=== PATIENT | female | born 1965 | race Hispanic/Latino ===

== ENCOUNTER 2017-10-25 15:37 | Emergency (ER) | payer BC ==
[2017-10-25 15:52] VITALS: BMI 30.2
--- NOTE | 2017-10-25 16:44 | ED PDOC ---
HPI: Back Time Seen by Provider: 10/25/17 15:58 Chief Complaint (Nursing): Back Pain Chief Complaint (Provider): Back Pain History Per: Patient History/Exam Limitations: no limitations Onset/Duration Of Symptoms: Other (x4 weeks) Current Symptoms Are (Timing): Still Present Additional Complaint(s): 52 y/o female presents to the ED complaining of left lower back pain (non radiating) x 4 weeks. Patient is also complaining of pain on urination x 3 days. Reports that this morning she had neck pain and numbness in right arm when she woke up. Pt has been taking motrin but states it is not helping and she cannot sleep. Denies abdominal pain, nausea, vomiting, diarrhea or any further medical complaints. Past Medical History Reviewed: Historical Data, Nursing Documentation, Vital Signs Vital Signs: Last Vital Signs Temp 98.9 F 10/25/17 15:49 Pulse 84 10/25/17 15:49 Resp 16 10/25/17 15:49 BP 150/114 H 10/25/17 15:49 Pulse Ox 98 10/25/17 15:49 - Medical History PMH: No Chronic Diseases - Surgical History Other surgeries: Gastric Bypass - Family History Family History: States: Unknown Family Hx - Social History Current smoker - smoking cessation education provided: No Alcohol: None Drugs: Denies - Home Medications Home Medications: Ambulatory Orders Medication Instructions Recorded oxyCODONE/Acetaminophen [Percocet 1 ea PO Q6H PRN #8 tab 10/25/17 5/325 mg Tab] - Allergies Allergies/Adverse Reactions: Allergies Allergy/AdvReac Type Severity Reaction Status Date / Time No Known Allergies Allergy Verified 07/29/16 11:41 Review of Systems ROS Statement: Except As Marked, All Systems Reviewed And Found Negative (As per HPI, otherwise negative) Gastrointestinal: Negative for: Nausea, Vomiting, Abdominal Pain, Diarrhea Genitourinary Female: Positive for: Dysuria Musculoskeletal: Positive for: Neck Pain, Arm Pain (Right arm numbness), Back Pain (left lower back pain) Physical Exam - Reviewed Nursing Documentation Reviewed: Yes Vital Signs Reviewed: Yes - Physical Exam Appears: Positive for: Non-toxic, No Acute Distress Head Exam: Positive for: ATRAUMATIC, NORMAL INSPECTION, NORMOCEPHALIC Skin: Positive for: Normal Color, Warm, Dry Eye Exam: Positive for: Normal appearance ENT: Positive for: Normal ENT Inspection Neck: Positive for: Normal Cardiovascular/Chest: Positive for: Regular Rate, Rhythm. Negative for: Murmur Respiratory: Positive for: Normal Breath Sounds. Negative for: Accessory Muscle Use, Respiratory Distress Gastrointestinal/Abdominal: Positive for: Normal Exam Back: Positive for: Other (Tenderness to left lower back) Extremity: Positive for: Normal ROM. Negative for: Deformity Neurologic/Psych: Positive for: Alert, Oriented (x3) - ECG O2 Sat by Pulse Oximetry: 98 (RA) Pulse Ox Interpretation: Normal Medical Decision Making Medical Decision Making: Time: 16:22 Plan: EKG Urine dipstick Urine C-spine x-ray lumbar spine x-ray Reevaluation Time: 17:29 C-spine X-ray FINDINGS: BONES: Alignment maintained. No fracture. Dens Intact. DISC SPACES: Mild degenerative changes C5-6 and C6-7. Disc space narrowing, small non marginal osteophyte formation. SOFT TISSUES: Normal. No prevertebral soft tissue swelling. OTHER FINDINGS: None. IMPRESSION: No acute findings related to/accounting for the clinical presentation. Time: 17:29 Lumbar spine x-ray FINDINGS: BONES: Normal alignment. No listhesis. No fracture. Diffuse osteopenia identified. DISC SPACES: Unremarkable. OTHER FINDINGS: None. IMPRESSION: No significant or acute findings to account for/ related to the clinical presentation. Urine without signs of infection. Scribe Attestation: Documented by Radha Diggs acting as a scribe for MITUL Jenkins. Scribadali Attestation: All medical record entries made by the Scribe were at my direction and personally dictated by me. I have reviewed the chart and agree that the record accurately reflects my personal performance of the history, physical exam, medical decision making, and the department course for this patient. I have also personally directed, reviewed, and agree with the discharge instructions and disposition. Disposition - Clinical Impression Clinical Impression: Back pain - Patient ED Disposition Is Patient to be Admitted: No - Disposition Referrals: Provider TBD, [Primary Care Provider] - Disposition: Routine/Home Disposition Time: 18:06 Condition: GOOD Prescriptions: oxyCODONE/Acetaminophen [Percocet 5/325 mg Tab] 1 ea PO Q6H PRN #8 tab PRN Reason: Pain, Severe (8-10) Instructions: Low Back Pain in Adults Forms: [facility] ([place])
--- NOTE | 2017-10-25 17:30 | RAD ---
PROCEDURE: Cervical Spine Radiographs. HISTORY: Neck pain, right arm pain and numbness. No history of trauma provided COMPARISON: None. FINDINGS: BONES: Alignment maintained. No fracture. Dens Intact. DISC SPACES: Mild degenerative changes C5-6 and C6-7. Disc space narrowing, small non marginal osteophyte formation. SOFT TISSUES: Normal. No prevertebral soft tissue swelling. OTHER FINDINGS: None. IMPRESSION: No acute findings related to/accounting for the clinical presentation. Additional benign and/or incidental findings described above.
--- NOTE | 2017-10-25 17:31 | RAD ---
PROCEDURE: Radiographs of the Lumbar Spine. HISTORY: low back pain COMPARISON: No prior. FINDINGS: BONES: Normal alignment. No listhesis. No fracture. Diffuse osteopenia identified. DISC SPACES: Unremarkable. OTHER FINDINGS: None. IMPRESSION: No significant or acute findings to account for/ related to the clinical presentation.
[2017-10-25] MEDS ORDERED: Oxycodone/Acetaminophen 5/325 mg Tab PO STA (17:47)
[2017-10-25] MEDS ORDERED: Oxycodone/Acetaminophen 5/325 mg Tab ONE (17:56)
[2017-10-25 18:46] VITALS: BP 128/80; PULSE 78; RESP 18; TEMP 98; O2SAT 100
--- NOTE | 2017-10-26 11:13 | CARD ---
APPROVED REPORT EKG Measurement Heart [id number] IA [id number] [id number] <Conclusion> Sinus rhythm with short IA with frequent premature ventricular complexes T wave abnormality, consider anterolateral ischemia Abnormal ECG
== END 2017-10-25 18:46 | disposition home or self-care (01) ==
LOC: SUPCPDRO 15:37 → H.ER 15:37
DX: M54.9 Dorsalgia, unspecified (principal); I49.3 Ventricular premature depolarization